=== PATIENT | male | born 1965 | race Caucasian/White ===

== ENCOUNTER → 2020-07-21 | Day surgery (SDC) | payer BC, OTHER ==
[~2020-07-21] MED LIST: ASPIRIN EC81 MG PO; ATORVASTATIN CA20 MG PO; IBUPROFEN800 MG PO; TIADYLT ER180 MG PO; VIAGRA100 MG PO; VITAMIN B-121000 MC2 SL; VITAMIN D31250 MCG PO; ZYLOPRIM 100 M100 MG PO
== END | disposition home or self-care (01) ==
LOC: OR 05:46
DX: D12.3 Benign neoplasm of transverse colon (principal); K57.30 Diverticulosis of large intestine without perforation or abscess without bleeding; K63.89 Other specified diseases of intestine; I10 Essential (primary) hypertension; E78.00 Pure hypercholesterolemia, unspecified; E66.01 Morbid (severe) obesity due to excess calories; F41.9 Anxiety disorder, unspecified; Z87.891 Personal history of nicotine dependence; Z90.49 Acquired absence of other specified parts of digestive tract; Z68.42 Body mass index [BMI] 45.0-49.9, adult; Z88.0 Allergy status to penicillin; Z79.82 Long term (current) use of aspirin; Z79.899 Other long term (current) drug therapy
CPT/HCPCS: J2704; J7120